=== PATIENT | female | born 1995 | race Caucasian/White ===

== ENCOUNTER 2017-05-27 11:50 | Emergency (ER) | payer OTHER ==
[~2017-05-27] VITALS: Ht 152.4 cm; Wt 88.5 kg
[~2017-05-27 11:50] MED LIST: ALBUTEROL0.09 MG/A2 IH; ANUSOL-HC25 MG R; BENTYL10 MG PO; FLONASE ALLERG9.9 ML NS; HYDROCODONE BIT1 T11 PO; IBUPROFEN600 MG PO; IRON325 M1 PO; MOTRIN800 MG PO; Motrin,Rufen800 MG PO; PEPCID20 MG PO; PRENATAL1 TA1 PO; PROAIR HFA0.09 MG/AC IH; PROVENTIL0.09 MG/A1 INH; TRAMADOL HCL50 MG PO; ZYRTEC10 MG PO
[2017-05-27] MEDS ORDERED: Motrin,Rufen800 MG PO (14:12)
[2017-05-27] MEDS ORDERED: BROMFED DM COU118 M2 PO (14:12)
== END 2017-05-27 15:51 | disposition home or self-care (01) ==
LOC: ED 11:50
DX: J02.9 Acute pharyngitis, unspecified (principal)

== ENCOUNTER → 2019-06-14 | Outpatient (CLI) | payer OTHER ==
[~2019-06-14] MED LIST changes: +BROMFED DM COU118 M2 PO
== END | disposition home or self-care (01) ==
LOC: CARD 12:00
DX: R55 Syncope and collapse (principal)

== ENCOUNTER 2020-06-15 20:26 | Emergency (ER) | payer OTHER ==
[2020-06-15] MEDS ORDERED: CEPHALEXIN500 M1 PO (20:37)
== END 2020-06-15 20:40 | disposition home or self-care (01) ==
LOC: ED 20:26
DX: S71.102D Unspecified open wound, left thigh, subsequent encounter (principal); Z48.01 Encounter for change or removal of surgical wound dressing; Z79.899 Other long term (current) drug therapy; X58.XXXD Exposure to other specified factors, subsequent encounter

== ENCOUNTER 2020-09-25 00:23 | Emergency (ER) | payer OTHER ==
[~2020-09-25] VITALS: Ht 152.4 cm; Wt 93.4 kg
[~2020-09-25 00:23] MED LIST changes: +CEPHALEXIN500 M1 PO
[2020-09-25] MEDS ORDERED: AUGMENTIN 875875 MG PO (01:41)
== END 2020-09-25 01:58 | disposition home or self-care (01) ==
LOC: ED 00:23
DX: J32.9 Chronic sinusitis, unspecified (principal); H66.91 Otitis media, unspecified, right ear; F17.200 Nicotine dependence, unspecified, uncomplicated; Z79.899 Other long term (current) drug therapy

== ENCOUNTER 2020-12-08 21:34 | Emergency (ER) | payer OTHER ==
[~2020-12-08] VITALS: Ht 152.4 cm; Wt 97.1 kg
[~2020-12-08 21:34] MED LIST changes: +AUGMENTIN 875875 MG PO
[2020-12-09 01:27] LABS: BASO # 0.1 10*3/uL (0.0-0.1); BASO % 0.4 % (0.0-1.0); EOS # 0.1 10*3/uL (0.0-0.4); EOS % 0.4 % (1.0-4.0); HEMATOCRIT 42.9 % (37.0-47.0); LYMPH # 1.8 10*3/uL (1.3-4.4); LYMPH % 13.3 % (27.0-41.0); MEAN CELL VOLUME 84.6 fl (81.0-99.0); MEAN CORPUSCULAR HGB 26.6 pg (27.0-31.0); MEAN CORPUSCULAR HGB CONC 31.5 g/dl (33.0-37.0); MONO # 0.6 10*3/uL (0.1-1.0); MONO % 4.4 % (3.0-9.0); NEUT # 11.1 10*3/uL (2.3-7.9); NEUT % 81.1 % (47.0-73.0); PLATELET COUNT AUTOMATED 428 10*3/uL (130-400); RED BLOOD COUNT 5.07 10*6/uL (4.10-5.10); RED CELL DISTRI WIDTH 14.4 % (0-14.5); WHITE BLOOD COUNT 13.7 10*3/uL (4.8-10.8)
[2020-12-09 01:45] LABS: ALBUMIN 3.6 gm/dl (3.1-4.5); ALKALINE PHOSPHATASE 101 U/L (45-117); BUN 8 mg/dl (7-24); CHLORIDE 101 mmol/L (98-107); CREATININE 0.64 mg/dL (0.55-1.02); LIPASE 79 U/L (73-393); POTASSIUM 3.5 mmol/L (3.5-5.1); SGOT/AST 15 IU/L (3-35); SGPT/ALT 23 U/L (12-78); SODIUM 135 mmol/L (136-145)
[2020-12-09 01:48] LABS: TROPONIN I < 0.015 ng/ml (<0.045)
[2020-12-09 02:15] LABS: BILIRUBIN Negative (Negative); BLOOD Negative (Negative); CLARITY Clear (Clear); COLOR Yellow (Yellow); GLUCOSE Negative (Negative); KETONE Negative (Negative); LEUKO ESTERASE Trace (Negative); NITRITE Negative (Negative); PH 5.5 (4.5-8.0); SPECIFIC GRAVITY 1.015 (1.001-1.030); UROBILINOGEN 0.2 E.U./dl (0.0-1.0)
[2020-12-09 02:38] LABS: BACTERIA 2+; MUCOUS 1+; RBC 21-30 rbc/hpf (0-2)
[2020-12-09] MEDS ORDERED: PREDNISONE20 M1 PO (03:59)
[2020-12-09] MEDS ORDERED: ZOFRAN4 MG PO (03:59)
[2020-12-09] MEDS ORDERED: MECLIZINE HCL25 M2 PO (03:59)
[2020-12-09] MEDS ORDERED: AUGMENTIN 875875 MG PO (03:59)
== END 2020-12-09 04:42 | disposition home or self-care (01) ==
LOC: ED 21:34
PROVIDERS: Emergency Medicine
DX: R42 Dizziness and giddiness (principal); R11.0 Nausea; R20.2 Paresthesia of skin; R53.1 Weakness; R20.0 Anesthesia of skin; Z79.2 Long term (current) use of antibiotics; Z79.899 Other long term (current) drug therapy

== ENCOUNTER 2021-05-22 11:30 | Emergency (ER) | payer OTHER ==
[~2021-05-22] VITALS: Ht 152.4 cm; Wt 95.7 kg
[~2021-05-22 11:30] MED LIST changes: +MECLIZINE HCL25 M2 PO; +PREDNISONE20 M1 PO; +ZOFRAN4 MG PO
[2021-05-22 12:17] LABS: BILIRUBIN Negative (Negative); BLOOD Negative (Negative); CLARITY Cloudy (Clear); COLOR Yellow (Yellow); GLUCOSE Negative (Negative); KETONE Negative (Negative); LEUKO ESTERASE 2+ (Negative); NITRITE Negative (Negative); PH 6.5 (4.5-8.0); SPECIFIC GRAVITY 1.025 (1.001-1.030)
[2021-05-22 13:17] LABS: BACTERIA 3+
== END 2021-05-22 16:44 | disposition left against medical advice (07) ==
LOC: ED 11:30
PROVIDERS: Emergency Medicine
DX: R10.9 Unspecified abdominal pain (principal); Z53.21 Procedure and treatment not carried out due to patient leaving prior to being seen by health care provider

== ENCOUNTER 2021-10-04 07:07 | Emergency (ER) | payer OTHER ==
[~2021-10-04] VITALS: Wt 90.7 kg
[2021-10-04] MEDS ORDERED: ZITHROMAX250 MG PO (07:39)
== END 2021-10-04 07:45 | disposition home or self-care (01) ==
LOC: ED 07:07
DX: J02.9 Acute pharyngitis, unspecified (principal)

== ENCOUNTER 2022-09-04 21:24 | Emergency (ER) | payer OTHER ==
[~2022-09-04] VITALS: Ht 152.4 cm; Wt 99.8 kg
[~2022-09-04 21:24] MED LIST changes: +ZITHROMAX250 MG PO
[2022-09-04] MEDS ORDERED: BENADRYL ALLERG25 M5 PO (21:42)
[2022-09-04] MEDS ORDERED: SERTRALINE HYDR50 MG PO (21:43)
[2022-09-04] MEDS ORDERED: OSTERA TABLET1 EACH PO (21:43)
== END 2022-09-04 22:08 | disposition home or self-care (01) ==
LOC: ED 21:24
DX: H10.89 Other conjunctivitis (principal)

== ENCOUNTER 2023-06-15 07:43 | Emergency (ER) | payer OTHER ==
[~2023-06-15] VITALS: Ht 152.4 cm; Wt 97.1 kg
[~2023-06-15 07:43] MED LIST changes: +AMOX-CLAV 875-1 EACH PO; +BENADRYL ALLERG25 M5 PO; +CELECOXIB200 M1 PO; +MELOXICAM15 MG PO; +OSTERA TABLET1 EACH PO; +RISPERIDONE0.5 MG PO; +SERTRALINE HYDR50 MG PO
[2023-06-15] MEDS ORDERED: IBUPROFEN 800 MG TAB PO ONE (08:15)
[2023-06-15] MEDS ORDERED: Ondansetron Hydrochloride 4 MG TAB PO ONE (08:15)
[2023-06-15] MEDS ORDERED: ACETAMINOPHEN 325 MG TAB PO ONE (08:15)
[2023-06-15 08:48] LABS: BASO % 0.5 % (0.0-1.0); EOS % 0.1 % (1.0-4.0); HEMATOCRIT 44.9 % (37.0-47.0); LYMPH # 1.5 10*3/uL (1.3-4.4); LYMPH % 18.4 % (27.0-41.0); MEAN CELL VOLUME 85.5 fl (81.0-99.0); MEAN CORPUSCULAR HGB CONC 31.6 g/dl (33.0-37.0); MEAN PLATELET VOLUME 9.5 fl (9.6-12.3); MONO # 0.5 10*3/uL (0.1-1.0); MONO % 6.2 % (3.0-9.0); NEUT # 6.2 10*3/uL (2.3-7.9); NEUT % 74.7 % (47.0-73.0); PLATELET COUNT AUTOMATED 464 10*3/uL (130-400); RED BLOOD COUNT 5.25 10*6/uL (4.10-5.10); RED CELL DISTRI WIDTH 14.1 % (0-14.5); WHITE BLOOD COUNT 8.4 10*3/uL (4.8-10.8)
[2023-06-15 09:10] LABS: ALKALINE PHOSPHATASE 106 U/L (46-116); CHLORIDE 101 mmol/L (98-107); LIPASE 36 U/L (12-53); POTASSIUM 3.2 mmol/L (3.4-5.1); SGPT/ALT 19 U/L (5-49); TOTAL PROTEIN 8.2 gm/dL (6.0-8.0)
[2023-06-15 09:12] LABS: BETA-HCG, QUANT < 3.0 mIU/mL (3-10); BUN < 5 mg/dl (9-23)
[2023-06-15 09:21] LABS: BILIRUBIN Negative (Negative); BLOOD Negative (Negative); CLARITY Clear (Clear); COLOR Yellow (Yellow); GLUCOSE Negative (Negative); KETONE Negative (Negative); LEUKO ESTERASE Trace (Negative); NITRITE Negative (Negative); PH 6.5 (4.5-8.0)
[2023-06-15 09:26] LABS: BACTERIA 2+
[2023-06-15 09:27] LABS: EPITHELIAL CELLS TNTC; HYALINE CAST 0-2
[2023-06-15] MEDS ORDERED: ONDANSETRON4 MG SL (10:23)
[2023-06-15] MEDS ORDERED: Motrin,Rufen800 MG PO (10:23)
== END 2023-06-15 10:26 | disposition home or self-care (01) ==
LOC: ED 07:43
PROVIDERS: Emergency Medicine
DX: B34.9 Viral infection, unspecified (principal); Z20.822 Contact with and (suspected) exposure to COVID-19; R19.7 Diarrhea, unspecified; F32.A Depression, unspecified; J45.909 Unspecified asthma, uncomplicated; K21.9 Gastro-esophageal reflux disease without esophagitis; R10.2 Pelvic and perineal pain; Z79.899 Other long term (current) drug therapy

== ENCOUNTER 2023-06-25 19:10 | Emergency (ER) | payer OTHER ==
[~2023-06-25] VITALS: Ht 152.4 cm; Wt 98.9 kg
[~2023-06-25 19:10] MED LIST changes: +ONDANSETRON4 MG SL
[2023-06-25] MEDS ORDERED: Ketorolac Tromethamine 30 MG/ML VIAL IV ONE (21:45)
[2023-06-25] MEDS ORDERED: SODIUM CHLORIDE 0.9% 1,000 ML IV ONE (21:45)
[2023-06-25] MEDS ORDERED: IOHEXOL 300 MG/ML 100 ML VIAL IV ONE (22:00)
[2023-06-25 22:28] LABS: BILIRUBIN Negative (Negative); BLOOD Trace-Lysed (Negative); CLARITY Cloudy (Clear); COLOR Yellow (Yellow); GLUCOSE Negative (Negative); KETONE Negative (Negative); LEUKO ESTERASE Negative (Negative); NITRITE Negative (Negative); SPECIFIC GRAVITY >= 1.030 (1.001-1.030); UROBILINOGEN 0.2 E.U./dl (0.0-1.0)
[2023-06-25 22:30] LABS: BASO % 0.3 % (0.0-1.0); EOS # 0.2 10*3/uL (0.0-0.4); EOS % 2.4 % (1.0-4.0); HEMATOCRIT 44.7 % (37.0-47.0); LYMPH # 1.9 10*3/uL (1.3-4.4); LYMPH % 25.4 % (27.0-41.0); MEAN CELL VOLUME 86.6 fl (81.0-99.0); MEAN CORPUSCULAR HGB 26.9 pg (27.0-31.0); MEAN CORPUSCULAR HGB CONC 31.1 g/dl (33.0-37.0); MONO # 0.7 10*3/uL (0.1-1.0); MONO % 8.9 % (3.0-9.0); NEUT # 4.6 10*3/uL (2.3-7.9); NEUT % 62.6 % (47.0-73.0); PLATELET COUNT AUTOMATED 378 10*3/uL (130-400); RED BLOOD COUNT 5.16 10*6/uL (4.10-5.10); RED CELL DISTRI WIDTH 13.7 % (0-14.5); WHITE BLOOD COUNT 7.4 10*3/uL (4.8-10.8)
[2023-06-25 22:56] LABS: EPITHELIAL CELLS 31-40
[2023-06-25 22:56] LABS: ALKALINE PHOSPHATASE 92 U/L (46-116); BUN 5 mg/dl (9-23); CHLORIDE 108 mmol/L (98-107); LIPASE 36 U/L (12-53); POTASSIUM 4.5 mmol/L (3.4-5.1); SGPT/ALT 52 U/L (5-49); TOTAL PROTEIN 7.9 gm/dL (6.0-8.0)
== END 2023-06-26 00:13 | disposition home or self-care (01) ==
LOC: ED 19:10
PROVIDERS: Physician Assistant Medical
DX: K52.89 Other specified noninfective gastroenteritis and colitis (principal); F32.A Depression, unspecified; J45.909 Unspecified asthma, uncomplicated; K21.9 Gastro-esophageal reflux disease without esophagitis

== ENCOUNTER → 2024-06-02 | Outpatient (CLI) | payer OTHER | END | disposition home or self-care (01) | LOC: LAB 10:29 | PROVIDERS: ATTEND Obstetrics & Gynecology | DX: R79.89 Other specified abnormal findings of blood chemistry (principal) ==

== ENCOUNTER 2025-02-16 15:55 | Emergency (ER) | payer OTHER ==
[~2025-02-16] VITALS: Ht 152.4 cm; Wt 117.9 kg
[2025-02-16] MEDS ORDERED: NYSTATIN CREAM15 GM T (16:17)
[2025-02-16] MEDS ORDERED: METFORMIN850 MG PO (16:18)
[2025-02-16] MEDS ORDERED: LAMOTRIGINE25 M1 PO (16:18)
[2025-02-16] MEDS ORDERED: OMEPRAZOLE MAGN20 MG PO (16:18)
[2025-02-16] MEDS ORDERED: PALIPERIDONE ER3 MG PO (16:19)
[2025-02-16] MEDS ORDERED: MELOXICAM15 MG PO (16:19)
[2025-02-16] MEDS ORDERED: ATORVASTATIN CA20 M1 PO (16:19)
[2025-02-16] MEDS ORDERED: ANTIFUNGAL CRE141 GM T (16:43)
== END 2025-02-16 16:37 | disposition home or self-care (01) ==
LOC: ED 15:55
DX: B37.2 Candidiasis of skin and nail (principal); F31.9 Bipolar disorder, unspecified; E11.9 Type 2 diabetes mellitus without complications; E78.5 Hyperlipidemia, unspecified; K21.9 Gastro-esophageal reflux disease without esophagitis; Z79.899 Other long term (current) drug therapy; Z79.84 Long term (current) use of oral hypoglycemic drugs